=== PATIENT | female | born 1980 | race Hispanic/Latino ===

== ENCOUNTER 2021-12-24 19:06 | Observation (INO) | payer OTHER ==
[~2021-12-24] VITALS: Ht 157.5 cm; Wt 77.0 kg
[~2021-12-24 19:06] MED LIST: PRILOSEC10 MG OR
--- NOTE | 2021-12-24 19:06 | NUR ---
PT TO ROOM VIA EMS STRETCHER FOR BEDSIDE TRIAGE
--- NOTE | 2021-12-24 19:15 | NUR ---
PT UNCOOPERATIVE AT FIRST REFUSES TO GIVE NAME, GET UNDRESSED ETC. AFTER SOME VERBAL COMMUNITACITON ADN PT EDUCATED REGARDING PROCESS, PT IS MORE AGREEABLE AND COOPERATIVE.
[2021-12-24 19:44] LABS: HEMATOCRIT 43.2 % (37.0-47.0); HEMOGLOBIN 14.1 g/dl (12.0-16.0); IMMATURE GRANULOCYTES 0.2 % (0.0-5.0); MEAN CELL VOLUME 96.6 fL CALC (80.0-100.0); MEAN CORPUSCULAR HGB 31.5 pG CALC (26.0-32.0); MEAN CORPUSCULAR HGB CONC 32.6 g/dL CAL (32.0-36.0); NEUT# 6.14 thou/uL (2.00-7.15); RED BLOOD COUNT 4.47 mill/uL (4.20-5.60)
[2021-12-24 19:53] LABS: ALKALINE PHOSPHATASE 98 u/l (38-126); ANION GAP 13 (6-22 (CALC)); BUN 12 mg/dL (7-17); BUN/CREATININE RATIO 15 (12-20 (CALC)); CARBON DIOXIDE 23 mmol/l (22-30); CHLORIDE 107 mmol/l (95-108); CREATININE 0.8 mg/dL (0.5-1.0); GFR > 60 ML/MIN (>=60 (CALC)); GFR FOR AFR.AMER. > 60 ML/MIN (>=60 (CALC)); POTASSIUM 4.2 mmol/l (3.5-5.1); SGOT/AST 43 u/l (14-36); SODIUM 139 mmol/l (137-146)
[2021-12-24 19:54] LABS: ALBUMIN 4.3 g/dL (3.2-5.0); BILIRUBIN, TOTAL 0.4 mg/dL (0.0-1.4); ETHYL ALCOHOL 20 mg/dl (0-30); MAGNESIUM 1.9 mg/dL (1.6-2.3); TOTAL PROTEIN 8.2 g/dL (6.3-8.2)
[2021-12-24 20:05] LABS: MYOGLOBIN 49 ng/mL (0 - 62)
--- NOTE | 2021-12-24 20:05 | NUR ---
PT RESTING MORE CALM AND COOPERATIVE AT THIS TIME, EDUCATED REGARDING [place] ACT ADN PLAN OF CAER, PT VERBALIZES UNDERSTANDING.
--- NOTE | 2021-12-24 21:25 | NUR ---
PT RESTING WITH EYES CLOSED DROWSY BUT AROUSES EASILY TO VERBAL STIMULI WILL COTNINUE TO MONITOR.
--- NOTE | 2021-12-24 21:45 | NUR ---
POISON CONTROL CALLED RECOMMENDED TO MONITOR PT ON TELE: FOR 24 HRS AND TO WATCH FOR QRS >100 ms OR QTC > 500 ms, AND TO REPEAT LABS IN 4-6 HRS. >
[2021-12-24 21:47] LABS: URINE BILIRUBIN - DIPSTICK NEGATIVE (NEGATIVE); URINE BLOOD DIPSTICK SMALL (NEGATIVE); URINE COLOR YELLOW; URINE GLUCOSE - DIPSTICK NEGATIVE (NEGATIVE); URINE KETONE TRACE mg/dL (NEGATIVE); URINE LEUK ESTERASE TRACE (NEGATIVE); URINE PROTEIN - DIPSTICK NEGATIVE (NEG-TRACE); URINE SPECIFIC GRAVITY >=1.030; URINE UROBILINOGEN - DIPSTICK 0.2 E.U./dL (0.2)
[2021-12-24 21:52] LABS: URINE NITRITE - DIPSTICK NEGATIVE (Negative)
[2021-12-24 21:57] LABS: URINE SQUAMOUS EPITHELIAL CELL FEW EPI/hpf (0-FEW)
--- NOTE | 2021-12-24 23:23 | NUR ---
UPDATE TO [facility].
--- NOTE | 2021-12-25 00:12 | NUR ---
TELEPHONE REPORT RECEIVED FROM Renetta COLVIN RN IN ED.
--- NOTE | 2021-12-25 00:16 | NUR ---
REPORT CALLED TO PHILLIP.
--- NOTE | 2021-12-25 00:25 | NUR ---
PT TRANSPORTED TO ICU BED 4 FOR MONITORING, PT CALM AND COOPERATIVE WITH CARE.
--- NOTE | 2021-12-25 00:26 | NUR ---
PT ARRIVES VIA WC ACCOMPANIED BY Wilbert MCKEON RN. ADMITTED TO ROOM ICU#4. Wilbert MULLINS CNA ASSIGNED 1:1 SITTER.
[2021-12-25] MEDS ORDERED: CITALOPRAM40 M1 PO (00:28)
[2021-12-25] MEDS ORDERED: ADDERALL15 MG PO (00:29)
[2021-12-25] MEDS ORDERED: BUSPAR15 M1 PO (00:30)
[2021-12-25 00:35] VITALS: BP 140/75
--- NOTE | 2021-12-25 01:04 | NUR ---
PT REPORTS SHE IS HUNGRY. FROZEN DINNER TRAY PREPARED AND PROVIDED WITH ICE CREAM CUP.
--- NOTE | 2021-12-25 01:20 | NUR ---
Alexei OLIVAS [facility] SECURITY AT BEDSIDE COLLECTING LAB WORK.
--- NOTE | 2021-12-25 01:26 | NUR ---
B. EMERY HSE ADVISOR AT BEDSIDE OBTAINING ECG. NSR 87. QRS DURATION 74ms. QTc 457ms.
[2021-12-25 02:00] VITALS: BP 134/88
--- NOTE | 2021-12-25 02:00 | NUR ---
PT APPEARS TO BE SLEEPING, NO APPARENT DISTRESS. RESPIRATIONS REGUALR AND UNLABORED. SR 80'S ON MONITOR. Wilbert MULLINS CNA REMAINS AT BEDSIDE. CALL RAMOS WITHIN REACH.
[2021-12-25 02:10] LABS: ALBUMIN 3.3 g/dL (3.2-5.0); BILIRUBIN, TOTAL 0.2 mg/dL (0.0-1.4); TOTAL PROTEIN 6.4 g/dL (6.3-8.2)
--- NOTE | 2021-12-25 02:38 | NUR ---
LFT RESULTS REVIEWED. RESULTS WNL.
[2021-12-25 04:00] VITALS: BP 130/74
--- NOTE | 2021-12-25 04:00 | NUR ---
PT APPEARS TO BE SLEEPING, NO APPARENT DISTRESS. RESPIRATIONS REGUALR AND UNLABORED. SR 80'S ON MONITOR. Wilbert MULLINS CNA REMAINS AT BEDSIDE. CALL RAMOS WITHIN REACH.
--- NOTE | 2021-12-25 04:58 | NUR ---
Alexei OLIVAS CLOSING COORDINATOR AT BEDSIDE COLLECTING AM LABS.
[2021-12-25 05:39] LABS: HEMATOCRIT 38.4 % (37.0-47.0); HEMOGLOBIN 12.2 g/dl (12.0-16.0); MEAN CELL VOLUME 98.2 fL CALC (80.0-100.0); MEAN CORPUSCULAR HGB 31.2 pG CALC (26.0-32.0); MEAN CORPUSCULAR HGB CONC 31.8 g/dL CAL (32.0-36.0); RED BLOOD COUNT 3.91 mill/uL (4.20-5.60); RED CELL DISTRI WIDTH 13.3 % (11.5-15.5)
[2021-12-25 06:00] VITALS: BP 127/80
[2021-12-25 06:06] LABS: ANION GAP 9 (6-22 (CALC)); BUN 16 mg/dL (7-17); BUN/CREATININE RATIO 23 (12-20 (CALC)); CARBON DIOXIDE 23 mmol/l (22-30); CHLORIDE 110 mmol/l (95-108); CREATININE 0.7 mg/dL (0.5-1.0); GFR > 60 ML/MIN (>=60 (CALC)); GFR FOR AFR.AMER. > 60 ML/MIN (>=60 (CALC)); MAGNESIUM 1.9 mg/dL (1.6-2.3); POTASSIUM 4.7 mmol/l (3.5-5.1); SODIUM 137 mmol/l (137-146)
--- NOTE | 2021-12-25 06:45 | NUR ---
REPORT RECEIVED FROM PHILLIP POTTS.
--- NOTE | 2021-12-25 07:00 | NUR ---
PATIENT RESTING IN BED AWAKE. PATIENT IS ALERT AND ORIENTED X3. SHIFT ASSESSMENT COMPLETED AT THIS TIME. IV PATENT X1. CALL LIGHT IN [facility]. WILL CONTINUE TO MONITOR. SITTER AT BEDSIDE.
--- NOTE | 2021-12-25 07:45 | NUR ---
PATIENT SET UP FOR AM MEAL AT THIS TIME.
[2021-12-25 08:00] VITALS: BP 148/99
--- NOTE | 2021-12-25 08:30 | NUR ---
PATINET PULLED OUT IV AT THIS TIME.
--- NOTE | 2021-12-25 09:14 | NUR ---
DR ALTMAN AT BEDSIDE AT THIS TIME.
[2021-12-25 10:00] VITALS: BP 139/84
--- NOTE | 2021-12-25 11:03 | NUR ---
PATIENT RESTING IN BED WATCHING TV. RESP ARE EVEN AND UNLABORED. SITTER REMAINS AT BEDSIDE.
--- NOTE | 2021-12-25 11:50 | NUR ---
Discharge instructions given. Patient verbalizes understanding of same. Discharged in stable condition via Ambulatory to *Other with staff. All belongings sent with pt.
== END 2021-12-25 11:50 ==
LOC: ED 19:06 → ICU 22:41
PROVIDERS: Emergency Medicine; ADMIT Hospitalist; ATTEND Hospitalist
DX: T43.222A Poisoning by selective serotonin reuptake inhibitors, intentional self-harm, initial encounter (principal); T43.292A Poisoning by other antidepressants, intentional self-harm, initial encounter; T42.4X2A Poisoning by benzodiazepines, intentional self-harm, initial encounter; F32.A Depression, unspecified; F41.9 Anxiety disorder, unspecified; F17.200 Nicotine dependence, unspecified, uncomplicated; Z20.822 Contact with and (suspected) exposure to COVID-19